=== PATIENT | male | born 1960 | race African-American/Black ===

== ENCOUNTER 2018-10-08 16:57 | Emergency (ER) | payer MEDICAID ==
[~2018-10-08] VITALS: Ht 172.7 cm; Wt 77.0 kg
[2018-10-08] MEDS ORDERED: ONDANSETRON HCL 4MG/2ML INJ IV STA (18:41)
[2018-10-08] MEDS ORDERED: SODIUM CHLORIDE 0.9% 1,000 ML IV ONE (18:41)
[2018-10-08] MEDS ORDERED: MORPHINE SULFATE 4 MG/ML CPJ (NOT FOR IM USE) IV STA (18:41)
[2018-10-08] MEDS ORDERED: ASPIRIN 81MG TABLET PO ONE (18:45)
[2018-10-08] MEDS ORDERED: NITROGLYCERIN OINT 1GM/INCH UDPKT TD ONE (18:45)
[2018-10-08 20:02] LABS: BASOPHILS % 0.3 % (0.0-2.0); EOSINOPHILS % 0.2 % (0.0-5.0); HEMATOCRIT. 41.9 % (42.0-52.0); HEMOGLOBIN. 14.4 g/dL (14.0-18.0); LYMPHOCYTES % 11.6 % (20.0-50.0); MEAN CORPUSCULAR HEMOGLOBIN 36.1 pg (28.0-32.0); MEAN PLATELET VOLUME 7.3 fl (7.4-10.4); MONOCYTES % 13.8 % (2.0-8.0); NEUTROPHILS % 74.1 % (40.0-76.0); PLATELET 270 x1000/uL (130-400); RED BLOOD CELL COUNT 3.99 mill/uL (4.7-6.1)
[2018-10-08 20:06] LABS: CHLORIDE 89 mEq/L (98-107)
[2018-10-08 20:10] LABS: INR 1.1; PARTIAL THROMBOPLASTIN TIME 31.6 sec (23.4-31.0); PROTHROMBIN TIME 11.2 sec (9.6-11.0)
[2018-10-08] MEDS ORDERED: ALBUTEROL (0.083%) 2.5MG/3ML NEB HHN STA (20:26)
[2018-10-08] MEDS ORDERED: LEVOFLOXACIN 500MG PREMIX 100 ML IV ONE (22:30)
[2018-10-09] MEDS ORDERED: IOHEXOL-350 100 ML BOTTLE ONE (00:11)
[2018-10-09 01:26] VITALS: BP 128/78
== END 2018-10-09 01:32 | disposition short-term general hospital (02) ==
LOC: ER 16:57 → CANBEDREQ 10-09 03:17
DX: R07.89 Other chest pain (principal); F17.200 Nicotine dependence, unspecified, uncomplicated; F12.10 Cannabis abuse, uncomplicated; I10 Essential (primary) hypertension
CPT/HCPCS: 36415; 71045; 71275; 74174; 80053; 83880; 84484; 85025; 85610; 85730; 93005; 94640; 96365; 96375; 99285; J1956; J2270; J2405; J7030; J7611; Q9967